=== PATIENT | female | born 1970 | race American Indian/Alaskan Native ===

== ENCOUNTER 2019-02-05 10:09 | Outpatient (CLI) | payer OTHER ==
--- NOTE | 2019-02-05 12:57 | Mammography Report ---
BILATERAL DIGITAL SCREENING MAMMOGRAM WITH CAD INDICATION: Routine screening mammography. TECHNIQUE: Digital bilateral 2D mammography was obtained in the craniocaudal and mediolateral obliq ue projections. This examination was interpreted with the benefit of Computer-Aided Detection analysi s. COMPARISON: 03/29/2015 FINDINGS: Breast Density: The breasts are heterogeneously dense, which may obscure small masses. No mass, architectural distortion or suspicious calcifications. IMPRESSION:No mammographic evidence of malignancy. BI-RADS Category 1: Negative. No mammographic evidence of malignancy. Recommend routine screening m ammography in one year. A "normal" or negative report should not discourage follow up or biopsy of a clinically significant f inding. A written summary of these findings will be mailed to the patient. The patient will be entered into a mammography reporting system which will generate a reminder letter for the patient's next appointmen t at the appropriate interval. The [employer] recommends yearly mammograms starting at age 40 and continuing as l kandace as a woman is in good health. Breast MRI is recommended for women with an approximate 20-25% or greater lifetime risk of breast cancer, including women with a strong family history of breast or ova citlalli cancer or who have been treated for Hodgkin's disease. Signer Name: Joseph Georges MD Signed: 02/05/2019 12:53 PM Workstation Name: [id number]
== END 2019-02-05 10:10 | disposition home or self-care (01) ==
LOC: MAMMO 10:09
PROVIDERS: ATTEND Family Medicine
DX: Z12.31 Encounter for screening mammogram for malignant neoplasm of breast (principal)
CPT/HCPCS: 77067

== ENCOUNTER 2021-11-16 06:07 | Day surgery (SDC) | payer OTHER ==
[2021-11-14 11:23] LABS: Basophils # (Auto) 0.1 K/mm3 (0.0-0.1); Basophils % (Auto) 1.6 % (0.0-1.8); Eosinophils # (Auto) 0.2 K/mm3 (0.0-0.4); Eosinophils % (Auto) 3.7 % (0.0-4.3); Hematocrit 34.9 % (30.3-42.9); Hemoglobin 11.4 gm/dl (10.1-14.3); Lymphocytes % (Auto) 37.6 % (13.4-35.0); Mean Corpuscular HGB Conc 33 % (30-34); Mean Corpuscular Volume 87 fl (79-97); Monocytes # (Auto) 0.5 K/mm3 (0.0-0.8); Platelet Count 256 K/mm3 (140-440); Red Blood Count 4.04 M/mm3 (3.65-5.03); Red Cell Distribution Width 13.2 % (13.2-15.2)
--- NOTE | 2021-11-14 16:22 | Anesthesia Consultation ---
Anesthesia Consult and Med Hx Date of service: 11/16/21 - Airway Anesthetic Teeth Evaluation: Crowns ROM Head & Neck: Adequate Mental/Hyoid Distance: Adequate Mallampati Class: Class I Intubation Access Assessment: Good - Pre-Operative Health Status Proposed Anesthetic Plan: General Nerve Block: TAP - Pulmonary Hx Smoking: No Hx Sleep Apnea: No (SNORES) - Cardiovascular System Hx Hypertension: No - Central Nervous System Hx Psychiatric Problems: No - Gastrointestinal Hx Gastroesophageal Reflux Disease: Yes (Occasional) - Hematic Hx Anemia: Yes Hx Sickle Cell Disease: No - Other Systems Hx Alcohol Use: Yes (OCC.) Hx Substance Use: No Hx Cancer: No Hx Obesity: No
[~2021-11-16 06:07] MED LIST: ACETAMINOPHEN 500 MG TAB PO NR; CELECOXIB 200 MG CAP PO NR; LACTATED RINGERS 1,000 ML IV SCH; MAGNESIUM OXIDE 400 MG TAB PO NR; MIDAZOLAM 2 MG/2 ML INJ IV NR; fentaNYL 100 MCG/2 ML INJ IV NR
--- NOTE | 2021-11-16 07:13 | Short Stay Summary ---
Short Stay Documentation Date of service: 11/16/21 Narrative H&P: 51-year-old -0-0-3 with a history of of dysfunctional uterine bleeding and fibroids. The patient underwent an ultrasound that demonstrated findings of leiomyomatous uteri. The patient has been offered other treatment modalities and has elected to undergo definitive surgical management. - History Principal diagnosis: Uterine fibroids Past Medical History: anemia, other (Uterine fibroids) Past Surgical History: Other (Tubal ligation) Social history: - Allergies and Medications Current Medications: Allergies No Known Allergies Allergy (Unverified 05/07/14 11:44) Home Medications Medication Instructions Recorded Confirmed Last Taken Type Vitamin D2 1 cap PO 1XW 11/09/21 11/09/21 Unknown History Active Medications Acetaminophen (Acetaminophen 500 Mg Tab) 1,000 mg PO ONCE NR Stop: 11/16/21 20:00 Celecoxib (Celecoxib 200 Mg Cap) 400 mg PO PREOP NR Stop: 11/16/21 20:00 Fentanyl (Fentanyl 100 Mcg/2 Ml Inj) 100 mcg IV ONCE NR Stop: 11/16/21 20:00 Lactated Ringer's (Lactated Ringers) 1,000 mls @ 125 mls/hr IV DIRECT BRAYAN Magnesium Oxide (Magnesium Oxide 400 Mg Tab) 400 mg PO ONCE NR Stop: 11/16/21 20:00 Methocarbamol (Methocarbamol 750 Mg Tab) 1,500 mg PO ONCE NR Stop: 11/16/21 20:00 Midazolam HCl (Midazolam 2 Mg/2 Ml Inj) 2 mg IV PREOP NR Stop: 11/16/21 23:59 - Physical exam General appearance: no acute distress Integumentary: no rash HEENT: Atraumatic Lungs: Clear to auscultation Breasts: deferred Heart: Regular rate Gastrointestinal: normal Female Genitourinary: deferred Rectal Exam: deferred - Brief post op/procedure progress note Date of procedure: 11/16/21 Pre-op diagnosis: Symptomatic uterine fibroids Post-op diagnosis: same Procedure: Robotic hysterectomy and bilateral salpingectomy Anesthesia: WES Surgeon: VIANEY POPE Estimated blood loss: other (25ml) Pathology: list (Uterus, cervix, leiomyomas, bilateral tubes) Specimen disposition: to lab Condition: stable - Hospital course Hospital course: The patient was admitted the day of surgery underwent a robotic hysterectomy and bilateral salpingectomy. Please see operative note for details of surgery. Her postoperative course was uneventful. - Disposition Condition at discharge: Good Disposition: 01 HOME / SELF CARE / HOMELESS Short Stay Discharge Plan Activity: other (Pelvic rest for 6 weeks) Diet: regular Additional Instructions: Pelvic rest for 6 weeks No tub baths for 4 weeks but patient may shower Patient may drive in 2 weeks
[2021-11-16] MEDS ORDERED: SODIUM CHLORIDE P/F VIAL 10 ML 20 ML ONE (07:24)
[2021-11-16] MEDS ORDERED: propofoL 200 MG/20 ML VIAL IV ONE (07:24)
[2021-11-16] MEDS ORDERED: LIDOCAINE MPF (2%) 20 MG/1 ML VIAL 5 ML ONE (07:24)
[2021-11-16] MEDS ORDERED: ROCURONIUM 50 MG/5 ML INJ IV ONE (07:24)
[2021-11-16] MEDS ORDERED: KETAMINE/STERILE WATER 50 MG/ML SYRINGE ONE (07:26)
[2021-11-16] MEDS ORDERED: BUPIVACAINE/PF (0.25%) 2.5 MG/ML 30 ML VIAL INFILTRATI ONE (07:32)
[2021-11-16] MEDS ORDERED: dexAMETHasone 20 MG/5 ML VIAL ONE (07:32)
[2021-11-16] MEDS ORDERED: LIDOCAINE (1%) 10 MG/1 ML VIAL 20 ML MDV ONE (07:38)
[2021-11-16] MEDS ORDERED: HYDROmorphone 1 MG/1 ML INJ IV PRN (07:41)
--- NOTE | 2021-11-16 07:41 | Anesthesia Day of Surgery ---
Anesthesia Day of Surgery - Day of Surgery Patient Examined: Yes Patient H&P Reviewed: Yes Patient is NPO: Yes
[2021-11-16] MEDS ORDERED: ONDANSETRON 4 MG/2 ML INJ IV PRN (08:00)
[2021-11-16] MEDS ORDERED: ceFAZolin/Water 2 GM/20 ML 2 GM/20 ML SYRINGE IV NR (08:00)
[2021-11-16] MEDS ORDERED: LACTATED RINGERS 1,000 ML ONE (09:49)
[2021-11-16] MEDS ORDERED: ONDANSETRON 4 MG/2 ML INJ ONE (09:49)
[2021-11-16] MEDS ORDERED: KETOROLAC 30 MG/1 ML INJ ONE (09:49)
[2021-11-16] MEDS ORDERED: SODIUM CHLORIDE 0.9% IRR 1,500 ML BOTTLE IR ONE (10:16)
[2021-11-16] MEDS ORDERED: SODIUM CHLORIDE 0.9% IRRIG SOLN 2000 ML IR ONE (10:17)
[2021-11-16] MEDS ORDERED: GLYCOPYRROLATE 0.4 MG/2 ML INJ ONE (10:26)
[2021-11-16] MEDS ORDERED: NEOSTIGMINE 10MG/10 ML INJ MDV ONE (10:26)
[2021-11-16] MEDS ORDERED: fentaNYL 100 MCG/2 ML INJ ONE (10:31)
--- NOTE | 2021-11-16 10:31 | Operative Report ---
Operative Report Operative Report: Date of surgery: November 16, 2021 Preoperative diagnoses: Symptomatic uterine fibroid Postoperative diagnoses: Same as above Procedure: Robotic hysterectomy; bilateral salpingectomy Surgeon: Keya Espino M.D. Flight Purser:Tal GALEANO Anesthesia: Gen. endotracheal anesthesia Estimated blood loss: 25 mL Pathology: Uterus, cervix, bilateral tubes, leiomyomas Indication: 51-year-old -0-0-3 with a history of symptomatic uterine fibroids. The patient elected to undergo definitive surgical management. Procedure: The patient was taken to the operating room and given general endotracheal anesthesia without complication after a time out was performed confirming the surgery and identity of the patient. She was prepped and draped in a normal sterile fashion. A bivalve speculum was placed in the patient's vagina and a single-tooth tenaculum placed on the anterior lip of the cervix. The uterus was sounded with the uterine sound. A stay suture with 0-vicryl was placed at 12 o'clock on the anterior cervix. A Holidog uterine manipulator was placed in the bivalve speculum was then removed. A warm laparotomy sponge was placed in the vagina. Attention was then turned to the patient's abdomen where a 12millimeter supra umbilical skin incision was then made. A Veress needle was placed and peritoneal entry was verified water-filled syringe. Insufflation of the peritoneal cavity was performed with CO2 gas. The 12 mm trocar was then placed under direct visualization. An additional 8 mm robotic trocar was placed on the patient's left and right lateral side just opposite of the supraumbilical trocar. An additional 5 mm right lateral trocar was then placed as the accesso ry port. The supraumbilical 12 mm trocar site was closed with the Flash Aguayo device and 0-vicryl suture. The patient was then placed in steep Trendelenburg. The da Amber robot was then engaged. A fenestrated forcep was placed in arm 2 and a vessel sealer was placed in arm 1. General survey revealed an enlarged fibroid uterus with normal tubes and ovaries bilaterally. The surgeon then transferred to the surgical console. The mesosalpinx was then isolated on the right. The vessel sealer was used to coagulate the mesosalpinx which was then transected. The tube was transected from the ovary. The tubo- ovarian ligament was then coagulated and transected. The round ligament was then coagulated and transected also. The vesicouterine peritoneum was then entered from the patient's right side. The uterine vessels were then coagulated with the vessel sealer. The vessels were then transected . Attention was then turned to the patient's left side where the tubo-ovarian ligament and mesosalpinx were again isolated coagulated and transected. The vesical peritoneum was then entered from the left and joined in the midline. Peritoneum was reflected off of the lower uterine segment. Uterine vessels were then coagulated and then transected. The blood supply to the uterus was adequately contained, a posterior colpotomy was made. The V care ring was visualized. Posterior colpotomy was created with the monopolar scissors. The incision was continued circumferentially until anterior colpotomy was made. The cervix and uterus were amputated from the vaginal cuff. A myomectomy was performed with removal of the dominant leiomyoma. The uterus also had to be bivalved in order to facilitate delivery through the vagina. The uterus was then removed along with the tubes bilaterally through the vagina and a warm laparotomy sponge was placed and maintain the pneumoperitoneum. The vaginal cuff was then closed in a running fashion with V lock suture. Irrigation of the pelvis was performed. Surgicel powder was applied to the incision. The Issuui robot was undocked. The trocars were removed and the insuffliation was released. The skin was then reapproximated with 4-0 Monocryl. The tissue was sent to pathology which included the cervix, bilateral tubes, leiomyomas and uterus. The patient was then successfully extubated. She was then taken to the recovery room in stable condition. All sponge laps and needle counts were correct x2.
[2021-11-16] MEDS: HYDROmorphone 1 MG/1 ML INJ IV PRN ×2 (11:40→12:50)
--- NOTE | 2021-11-16 12:25 | Post Anesthesia Evaluation ---
- Post Anesthesia Evaluation Patient Participated: Yes Airway Patent: Yes Stable Respiratory Function: Yes Nausea/Vomiting: No Temp > 96.8F: Yes Pain Manageable: Yes Adequeate Hydration: Yes Anesthesia Complications: No Block Receding Appropriately: Yes Patient on Ventilator: No
[2021-11-16 13:30] VITALS: BP 142/65
== END 2021-11-16 14:25 | disposition home or self-care (01) ==
LOC: OR 06:07
PROVIDERS: ATTEND Obstetrics & Gynecology
DX: D25.9 Leiomyoma of uterus, unspecified (principal); N80.0 Endometriosis of uterus; N72 Inflammatory disease of cervix uteri; K21.9 Gastro-esophageal reflux disease without esophagitis; Z98.51 Tubal ligation status; Z20.822 Contact with and (suspected) exposure to COVID-19; Z72.89 Other problems related to lifestyle; Z98.890 Other specified postprocedural states
CPT/HCPCS: 36415; 58554; 64488; 84703; 85025; 86850; 86900; 86901; 88307; J0690; J1100; J1170; J1815; J1885; J2250; J2405; J2704; J2710; J3010; J3490; J7120; S2900; U0003; 64450; J7121

== ENCOUNTER 2021-11-29 20:14 | Emergency (ER) | payer OTHER ==
--- NOTE | 2021-11-30 03:39 | Emergency Department Report ---
ED General Adult HPI - General Chief complaint: Fever Stated complaint: TEMP 102.3 Time Seen by Provider: 11/30/21 03:27 Source: patient Mode of arrival: Ambulatory Limitations: No Limitations - History of Present Illness Initial comments: Patient 54-year-old female status post total abdominal hysterectomy on 11/16/[address] Espino. pt does endorse narcotic pain medication during post op period. Patient presents with malaise body aches chills for the past week. States she cannot tolerate po, was advised to present to ED by BRAIN WAVE TECHNICIAN Surgery. states pain is 5/10 aching cramping / spasms. There has been no fever or chills, patient states intermittent nausea or vomiting. Symptoms are exacerbated movement. Symptoms are relieved by nothing tried patient denies vaginal bleeding, patient denies flank pain. No history of renal stones no history of gallstones. There is no vaginal discharge, dysuria, frequency, or urgency, There is no fever noted in triage today - Related Data Home Medications Medication Instructions Recorded Confirmed Last Taken Vitamin D2 1 cap PO 1XW 11/09/21 11/16/21 11/15/21 09:00 Previous Rx's Medication Instructions Recorded Last Taken Type bisacodyL [Dulcolax suppos] 10 mg SD QDAY PRN #5 supp.rect 11/30/21 Unknown Rx polyethylene glycoL 3350 [Miralax 17 gm PO BID PRN 7 Days #14 packet 11/30/21 Unknown Rx 3350] Allergies Allergy/AdvReac Type Severity Reaction Status Date / Time No Known Allergies Allergy Unverified 05/07/14 11:44 ED Review of Systems ROS: Stated complaint: TEMP 102.3 Other details as noted in HPI Constitutional: denies: chills, fever Eyes: denies: eye pain, eye discharge, vision change ENT: denies: ear pain, throat pain Respiratory: denies: cough, shortness of breath, wheezing Cardiovascular: denies: chest pain, palpitations Endocrine: no symptoms reported Gastrointestinal: abdominal pain, nausea, vomiting, constipation. denies: diarrhea, hematemesis, melena Genitourinary: denies: urgency, dysuria, frequency, hematuria, discharge Musculoskeletal: denies: back pain, joint swelling, arthralgia Skin: denies: rash, lesions Neurological: denies: headache, weakness, paresthesias Psychiatric: denies: anxiety, depression Hematological/Lymphatic: as per HPI ED Past Medical Hx - Past Medical History Hx Hypertension: No Hx Diabetes: No Hx GERD: Yes (OCC.) Hx Sickle Cell Disease: No Hx Kidney Stones: No Hx Tuberculosis: No Hx HIV: No - Social History Smoking Status: Never Smoker - Medications Home Medications: Home Medications Medication Instructions Recorded Confirmed Last Taken Type Vitamin D2 1 cap PO 1XW 11/09/21 11/16/21 11/15/21 09:00 History bisacodyL [Dulcolax suppos] 10 mg SD QDAY PRN #5 supp.rect 11/30/21 Unknown Rx polyethylene glycoL 3350 [Miralax 17 gm PO BID PRN 7 Days #14 packet 11/30/21 Unknown Rx 3350] ED Physical Exam - General Limitations: No Limitations General appearance: alert, in no apparent distress - Head Head exam: Present: atraumatic, normocephalic - Eye Eye exam: Present: normal appearance, EOMI Pupils: Present: normal accommodation - ENT ENT exam: Present: normal exam - Neck Neck exam: Present: normal inspection, full ROM. Absent: tenderness, lymphadenopathy - Respiratory Respiratory exam: Present: normal lung sounds bilaterally. Absent: respiratory distress, wheezes, stridor, chest wall tenderness - Cardiovascular Cardiovascular Exam: Present: regular rate, normal rhythm, normal heart sounds. Absent: systolic murmur, diastolic murmur, rubs, gallop - GI/Abdominal GI/Abdominal exam: Present: soft, tenderness (Suprapubic), normal bowel sounds. Absent: distended, guarding, rebound, rigid, bruit, hernia - Rectal Rectal exam: Present: deferred - External exam: Present: other (pt declines ) - Extremities Exam Extremities exam: Present: normal inspection, full ROM, normal capillary refill - Back Exam Back exam: Present: normal inspection, full ROM. Absent: tenderness, CVA tend erness (R), CVA tenderness (L) - Neurological Exam Neurological exam: Present: alert, oriented X3, CN II-XII intact, normal gait. Absent: motor sensory deficit, reflexes normal - Psychiatric Psychiatric exam: Present: normal affect, normal mood - Skin Skin exam: Present: warm, dry, intact, normal color. Absent: rash ED Course Vital Signs 11/29/21 20:49 Temperature 100.7 F H Pulse Rate 102 H Respiratory 16 Rate Blood Pressure 124/60 O2 Sat by Pulse 97 Oximetry ED Medical Decision Making - Lab Data Result diagrams: 11/30/21 03:43 11/30/21 03:43 Labs 11/30/21 11/30/21 11/30/21 03:43 03:43 04:40 WBC 18.3 H RBC 3.88 Hgb 10.4 Hct 32.8 MCV 85 MCH 27 L MCHC 32 RDW 12.9 L Plt Count 526 H Lymph % (Auto) 8.8 L [place] % (Auto) 9.4 H Eos % (Auto) 0.9 Baso % (Auto) 0.4 Lymph # (Auto) 1.6 [place] # (Auto) 1.7 H Eos # (Auto) 0.2 Baso # (Auto) 0.1 Seg Neutrophils % 80.5 H Seg Neutrophils # 14.7 H Sodium 138 Potassium 4.2 Chloride 97.9 L Carbon Dioxide 26 Anion Gap 18 BUN 9 Creatinine 0.7 Estimated GFR > 60 BUN/Creatinine Ratio 13 Glucose 90 Calcium 9.5 Total Bilirubin 0.90 AST 15 ALT 12 Alkaline Phosphatase 89 Total Protein 7.5 Albumin 3.6 L Albumin/Globulin Ratio 0.9 Urine Color Maddy Urine Turbidity Clear Urine pH 6.0 Ur Specific [place] 1.021 Urine Protein 100 mg/dl Urine Glucose (UA) Neg Urine Ketones 80 Urine Blood Neg Urine Nitrite Neg Urine Bilirubin Neg Urine Urobilinogen 4.0 Ur Leukocyte Esterase Neg Urine WBC (Auto) 2.0 Urine RBC (Auto) 3.0 U Epithel Cells (Auto) 2.0 Urine Mucus 3+ - Radiology Data Radiology results: report reviewed, image reviewed XR chest routine 2V INDICATION / CLINICAL INFORMATION: fever cough. COMPARISON: None available. FINDINGS: SUPPORT DEVICES: None. HEART /PULMONARY VASCULATURE: No significant abnormality. LUNGS / PLEURA: No significant pulmonary or pleural abnormality. No pneumothorax. ADDITIONAL FINDINGS: No significant additional findings. IMPRESSION: 1. No acute findings. Signer Name: Ellyn Aceves MD Signed: 11/30/2021 3:50 AM Workstation Name: [id number] Transcribed By: CHERYL Dictated By: ELLNY ACEVES MD Electronically Authenticated By: ELLYN ACEVES MD Signed Date/Time: 11/30/21349 DD/ 9 TD/TT: - Medical Decision Making Chest x-ray normal no infiltrates no opacities, KUB normal gas pattern consistent with constipation however. Labs noted WBCs abdominal spasms relieved after IV fluids given in ED. Patient is tolerating p.o. challenge without nausea vomiting there is no fever. Patient declines vaginal exam. Plan follow- up with BRAIN WAVE TECHNICIAN surgery today. DC home in stable condition at this time patient verbalized agreement understanding of discharge plan. Patient DC'd home in stable condition at this time. Critical care attestation.: If time is entered above; I have spent that time in minutes in the direct care of this critically ill patient, excluding procedure time. ED Disposition Clinical Impression: Abdominal pain Qualifiers: Abdominal location: lower abdomen, unspecified Qualified Code(s): R10.30 - Lower abdominal pain, unspecified Constipation Qualifiers: Constipation type: unspecified constipation type Qualified Code(s): K59.00 - Constipation, unspecified Disposition: HOME / SELF CARE / HOMELESS Is pt being admited?: No Does the pt Need Aspirin: No Condition: Stable Instructions: Abdominal Pain, Adult, [id number], Preventing Constipation After Surgery Additional Instructions: Take medications as prescribed, follow-up with SUBSTANCE ABUSE NURSE doctor call today for updated appointment. Return to emergency department should symptoms worsen. Prescriptions: bisacodyL [Dulcolax suppos] 10 mg SD QDAY PRN #5 supp.rect PRN Reason: Constipation polyethylene glycoL 3350 [Miralax 3350] 17 gm PO BID PRN 7 Days #14 packet PRN Reason: Constipation Referrals: VIANEY ESPINO MD [Staff Physician] - [facility] Forms: Work/School Release Form(ED) Time of Disposition: 07:17
[2021-11-30] MEDS ORDERED: SODIUM CHLORIDE 0.9% 1000 ML 1,000 ML IV ONE (03:42)
--- NOTE | 2021-11-30 03:54 | XRay Report ---
XR chest routine 2V INDICATION / CLINICAL INFORMATION: fever cough. COMPARISON: None available. FINDINGS: SUPPORT DEVICES: None. HEART /PULMONARY VASCULATURE: No significant abnormality. LUNGS / PLEURA: No significant pulmonary or pleural abnormality. No pneumothorax. ADDITIONAL FINDINGS: No significant additional findings. IMPRESSION: 1. No acute findings. Signer Name: Thang Thurman MD Signed: 11/30/2021 3:50 AM Workstation Name: [id number]
[2021-11-30 04:01] LABS: Basophils # (Auto) 0.1 K/mm3 (0.0-0.1); Basophils % (Auto) 0.4 % (0.0-1.8); Eosinophils # (Auto) 0.2 K/mm3 (0.0-0.4); Eosinophils % (Auto) 0.9 % (0.0-4.3); Hematocrit 32.8 % (30.3-42.9); Hemoglobin 10.4 gm/dl (10.1-14.3); Lymphocytes # (Auto) 1.6 K/mm3 (1.2-5.4); Lymphocytes % (Auto) 8.8 % (13.4-35.0); Mean Corpuscular HGB Conc 32 % (30-34); Mean Corpuscular Volume 85 fl (79-97); Monocytes # (Auto) 1.7 K/mm3 (0.0-0.8); Monocytes % (Auto) 9.4 % (0.0-7.3); Platelet Count 526 K/mm3 (140-440); Red Blood Count 3.88 M/mm3 (3.65-5.03); Red Cell Distribution Width 12.9 % (13.2-15.2)
[2021-11-30 04:32] LABS: Alanine Aminotransferase 12 units/L (7-56); Albumin 3.6 g/dL (3.9-5); Blood Urea Nitrogen 9 mg/dL (7-17); Calcium 9.5 mg/dL (8.4-10.2); Hemolysis Index 2
[2021-11-30 04:41] LABS: BUN/Creatinine Ratio 13
[2021-11-30] MEDS ORDERED: IBUPROFEN 800 MG TAB PO ONE (05:09)
[2021-11-30 05:12] LABS: Bilirubin,Urine NEG (Negative); Blood,Urine NEG (Negative); Color,Urine Amber (Yellow); Mucus,Urine 3+ /HPF
[2021-11-30 08:12] VITALS: BP 129/86
--- NOTE | 2021-11-30 13:35 | XRay Report ---
ABDOMEN 1 VIEW(S) INDICATION / CLINICAL INFORMATION: constipation. COMPARISON: None available. FINDINGS: TUBES / LINES: None. BOWEL GAS PATTERN/EXTRALUMINAL GAS: No significant abnormality. No pneumatosis or secondary signs of free air. ADDITIONAL FINDINGS: No significant additional findings. IMPRESSION: 1. No acute findings. Signer Name: Supa Sahni MD Signed: 11/30/2021 1:30 PM Workstation Name: [id number]
== END 2021-11-30 08:10 | disposition home or self-care (01) ==
LOC: ED 20:14
DX: K59.00 Constipation, unspecified (principal); R10.9 Unspecified abdominal pain; K21.9 Gastro-esophageal reflux disease without esophagitis; Z79.899 Other long term (current) drug therapy
CPT/HCPCS: 36415; 71046; 74018; 80053; 81001; 85025; 96360; 99284; J7030